=== PATIENT | female | born 1945 | race Caucasian/White ===

== ENCOUNTER 2020-09-05 09:20 | Emergency (ER) | payer MEDICARE, OTHER ==
[~2020-09-05] VITALS: Ht 172.7 cm; Wt 97.7 kg
--- NOTE | 2020-09-05 09:32 | NUR ---
BIB EMS FROM HOME AFTER PT STATES SHE AWOKE DIZZY THIS AM. ATTEMPTED TO WALK TO HER CAR AND FELT NAUSEOUS. HAD 2 BOUTS EMESIS AND STATES IMPROVEMENT OF ALL SYMPTOMS. DENIES DIARRHEA. VS SLABBER LIGHT HR 63, RR 16, 98% RA, BP 180/80. PT RESTING ON GURNEY. NADN. MONITORS APPLIED. VSS. WARM BLANKET PROVIDED. EKG COMPLETED. CALL LIGHT IN REACH.
--- NOTE | 2020-09-05 09:58 | NUR ---
PT RESTING ON GURNEY. NADN. SMITH.
[2020-09-05] MEDS ORDERED: SODIUM CHLORIDE 0.9% 1,000ML IVBOLUS ONE (10:00)
[2020-09-05] MEDS ORDERED: ONDANSETRON 2MG/ML, 2ML IVPush ONE (10:00)
[2020-09-05] MEDS ORDERED: SODIUM CHLORIDE FLUSH 10ML SYR IVF ONE (10:00)
[2020-09-05] MEDS ORDERED: MECLIZINE CHEWABLE 25 MG TAB PO ONE (10:00)
--- NOTE | 2020-09-05 10:14 | NUR ---
PT TAKEN TO CT IN STABLE CONDITION.
[2020-09-05 10:17] LABS: BASOPHILS % (AUTO) 1 % (0-1); EOSINOPHILS % (AUTO) 2 % (1-7); LYMPHOCYTES % (AUTO) 27 % (22-44); MEAN CORPUSCULAR HEMOGLOBIN 30.3 pg (27.0-34.8); MEAN CORPUSCULAR HGB CONC 33.4 g/dL (32.4-35.8); MEAN PLATELET VOLUME 9.7 fL (7.4-10.4); MONOCYTES % (AUTO) 9 % (2-9); NEUTROPHILS % (AUTO) 62 % (42-75); PLATELET COUNT 222 x10^3/uL (130-400); RED BLOOD COUNT 4.68 x10^6/uL (3.82-5.3)
[2020-09-05 10:29] LABS: ALANINE AMINOTRANSFERASE 32 U/L (12-78); ALBUMIN 3.4 g/dL (3.4-5.0); ANION GAP 5 mmol/L (5-15); CALCIUM 9.6 mg/dL (8.5-10.1); CHLORIDE 108 mmol/L (98-107)
[2020-09-05 10:33] LABS: ALKALINE PHOSPHATASE 77 U/L (45-117); BILIRUBIN,TOTAL 0.5 mg/dL (0.2-1.0); TOTAL PROTEIN 7.6 g/dL (6.4-8.2); TROPONIN I < 0.015 ng/mL (0.000-0.045)
--- NOTE | 2020-09-05 11:13 | NUR ---
PT STATES IMPROVEMENT FROM DIZZINESS. PT RESTING ON GURNEY. BROWN.
[2020-09-05 11:27] LABS: MICROSCOPIC AUTO
--- NOTE | 2020-09-05 11:40 | NUR ---
PT CHART REVIEWED AND PLACED FOR RECHECK.
--- NOTE | 2020-09-05 11:41 | NUR ---
ERP DR. CASRTO AT BEDSIDE FOR RE-EVAL.
[2020-09-05 11:53] VITALS: BP 169/67
--- NOTE | 2020-09-05 11:53 | NUR ---
PT RESTING ON GURNEY. NADN. SMITH.
--- NOTE | 2020-09-05 12:05 | NUR ---
PT AMBULATORY W/ STEADY GAIT. DENIES FEELING DIZZY/LIGHTHEADED. PASSED ROAD TEST.
== END 2020-09-05 12:37 | disposition home or self-care (01) ==
LOC: ED 11:11
DX: H81.393 Other peripheral vertigo, bilateral (principal); R94.31 Abnormal electrocardiogram [ECG] [EKG]; Z87.891 Personal history of nicotine dependence
CPT/HCPCS: 36415; 70450; 80053; 81001; 84484; 85025; 87077; 87086; 87186; 93005; 96361; 96374; 99285; J2405; J7030